=== PATIENT | female | born 1935 | race Caucasian/White ===

== ENCOUNTER 2020-12-31 21:16 | Emergency (ER) | payer MEDICAID, OTHER ==
[~2020-12-31] VITALS: Ht 167.6 cm; Wt 63.5 kg
[~2020-12-31 21:16] MED LIST: CARV3.1240 PO; CITA10TA70 PO; LISI2.5T47 PO; OMEP20TA44 PO; SIMV-13 PO; TEMA15CA PO
[2020-12-31] MEDS ORDERED: FAMOTIDINE (10MG/ML) 2ML VL IV ONE (23:00)
[2020-12-31] MEDS ORDERED: ONDANSETRON HCL 4 MG/2 ML VIAL IV ONE (23:00)
[2021-01-01] MEDS ORDERED: ACETAMINOPHEN 325 MG TAB PO ONE (00:30)
[2021-01-01 01:11] LABS: Urine Bacteria NONE SEEN /hpf (None Seen); Urine Blood TRACE /uL (Negative); Urine Specific Gravity 1.022 (1.001-1.035); Urine WBC 51 /hpf (0 - 5)
[2021-01-01] MEDS ORDERED: cefTRIAXone 1GM/50ML D5W 50 ML IV ONE (01:30)
[2021-01-01 02:00] VITALS: BP 91/28
== END 2021-01-01 03:01 | disposition home or self-care (01) ==
LOC: ER 21:16 → EDBD 21:16 → ER 01-01 03:01
DX: N39.0 Urinary tract infection, site not specified (principal)
CPT/HCPCS: 81001; 87086; 96365; 96375; 99284; J0696; J2405; J3490

== ENCOUNTER 2022-07-14 16:24 | Emergency (ER) | payer OTHER ==
[~2022-07-14] VITALS: Ht 170.2 cm; Wt 65.0 kg
[2022-07-14] MEDS ORDERED: ALBUTEROL MEDNEB 2.5 mg/3ml NEB ONE (16:38)
[2022-07-14] MEDS ORDERED: methylPREDNISolone SOD SUCC 125 MG/2 ML VL IV ONE (16:45)
[2022-07-14] MEDS ORDERED: IPRATROPIUM BROM 0.5 MG/2.5ML INH SOL HHN ONE (16:45)
[2022-07-14] MEDS ORDERED: AZITHROMYCIN 500MG/ 250ML 250 ML IV ONE (16:45)
[2022-07-14] MEDS ORDERED: ALBUTEROL SULF 2.5 MG/0.5ML(0.5%) NEB SOLN HHN ONE (16:45)
[2022-07-14 17:09] LABS: Basophils # (auto) 0 10 ^3/uL (0-0.2); Basophils % (auto) 0.2 % (0.0-2.0); Eosinophils # (auto) 0 10 ^3/uL (0-0.8); Eosinophils % (auto) 0.2 % (0.0-7.0); Hematocrit 42.8 % (36.0-46.0); Hemoglobin 14.3 g/dL (12.2-16.2); Lymphocytes # (auto) 0.6 10 ^3/uL (0.4-5.4); Lymphocytes % (auto) 6.1 % (10.0-50.0); Mean Corpuscular Hemoglobin 31.2 pg (28.0-32.0); Mean Corpuscular Hgb Conc. 33.4 g/dL (32.0-36.0); Mean Corpuscular Volume 93.6 fL (80.0-100.0); Monocytes # (auto) 0.6 10 ^3/uL (0-1.3); Neutrophils # (auto) 8.7 10 ^3/uL (1.6-8.6); Neutrophils % (auto) 87.5 % (37.0-80.0); Nucleated Red Blood Cells % 0.1 %; Red Blood Cells 4.57 10^6/uL (4.0-5.20); White Blood Cell 9.9 10^3/uL (4.4-10.8)
[2022-07-14 17:32] LABS: Calcium 9.2 mg/dL (8.5-10.1); Potassium 4.1 mmol/L (3.5-5.1)
[2022-07-14 17:34] LABS: BUN/Creatinine Ratio 22.6
[2022-07-14 17:37] LABS: Bilirubin, Total 0.3 mg/dL (0.2-1.0); Total Protein 7.3 g/dL (6.4-8.2)
[2022-07-14] MEDS ORDERED: METH4PAK PO (21:09)
[2022-07-14] MEDS ORDERED: AZIT1POW PO (21:09)
[2022-07-14 22:40] VITALS: BP 104/54
== END 2022-07-14 22:54 | disposition home or self-care (01) ==
LOC: EDBD 16:24 → ER 16:24
DX: J20.9 Acute bronchitis, unspecified (principal); Z20.822 Contact with and (suspected) exposure to COVID-19
CPT/HCPCS: 36415; 36600; 71045; 80053; 82805; 83605; 84484; 85025; 85379; 87040; 87426; 87804; 94640; 94644; 96365; 96366; 96375; 99285; J0456; J2930; J7644